=== PATIENT | female | born 1965 | race Caucasian/White ===

== ENCOUNTER 2017-01-15 16:48 | Observation (INO) ==
[2017-01-15] MEDS ORDERED: SODIUM CHLORIDE 0.9% INJ PRN (17:27)
[2017-01-15] MEDS ORDERED: PHENERGAN IV PRN (17:27)
[2017-01-15] MEDS ORDERED: NS 1,000 ML IV ONE (17:32)
[2017-01-15] MEDS ORDERED: TYLENOL PO PRN (17:33)
--- NOTE | 2017-01-15 18:58 | HISTORY AND PHYSICAL ---
PRIMARY CARE PHYSICIAN: Wilver Srinivasan MD. CHIEF COMPLAINT: Intractable nausea, vomiting, and diarrhea. HISTORY OF PRESENT ILLNESS: A 51-year-old, white female with a complicated past medical history presents for evaluation of above-mentioned symptoms. Pertinent history of present illness began approximately 6 weeks ago. At that time, patient was noted to have increasing stress associated with her 's acute illness. He was diagnosed with obstructive coronary artery disease and required stenting. Over the course of the last several weeks, patient's father also had been diagnosed with metastatic cancer. This was deemed to be not a candidate for surgery or chemotherapeutic intervention. The patient states she has been carrying this stress considerably. She has been taking her Prozac as prescribed. Within the last 5 days, patient has developed intractable nausea, vomiting, and diarrhea. She denies sick contacts to her knowledge. She has had a low-grade fever as well as decreased appetite and minimal p.o. intake. She has noted mild urinary hesitancy, but denies hematochezia, melena, dysuria, hematuria, pyuria, cough, congestion, and significant abdominal discomfort. The patient was seen in the office yesterday. The patient was treated symptomatically with Zofran therapy as needed. Because of her increasing stress, Prozac therapy was increased. Over the course of the night, patient's symptoms persisted. She presented today again in clinic. Laboratory evaluation returned acceptable. Patient will be admitted to the hospital for full evaluation and management of intractable nausea, vomiting, and diarrhea. PAST MEDICAL HISTORY: 1. Abnormal electrocardiogram with negative anterior T-waves. 2. History of anorexia in 1982, 1998, and 2005. 3. History of keratosis pilaris and occasional nevi. 4. Cervical spine pain status post surgical intervention in 2002 and 2007. 5. Depression. 6. Reflux disease. 7. Hypertension. 8. Hyperlipidemia. 9. Irritable bowel syndrome. 10. History of right lateral epicondyle status post surgical release in 2000. 11. Low back pain. 12. Menopause. 13. Menorrhagia status post endometrial ablation in 2004. CURRENT MEDICATIONS: 1. Acetaminophen 500 mg as needed. 2. Atorvastatin 10 mg at bedtime. 3. CoQ10, 100 mg daily. 4. Dicyclomine 20 mg, 3 times daily as needed. 5. Losartan 50 mg daily. 6. Prozac 60 mg daily. 7. Ranitidine as needed. 8. Trazodone 50 mg at bedtime as needed. 9. Zofran as needed. ALLERGIES: Patient states she is allergic to Celexa which causes dizziness and codeine which causes a rash. SOCIAL HISTORY: Patient denies tobacco, alcohol or illicit drug use. She works at [employer], and at [employer]. She exercises intermittently. FAMILY HISTORY: Patient's father passed at age 72 secondary to suicide. He had a history of alcoholism. Patient's mother is living at age 71. She has a history of osteoarthritis and ocular melanoma. REVIEW OF SYSTEMS: A 12 point review of systems was performed. Pertinent positives and negatives were noted in history of present illness. PHYSICAL EXAMINATION: VITAL SIGNS: Temperature 98.8 degrees, heart rate 80, respirations 18, blood pressure is 121/81. GENERAL: Well-nourished, well-developed, in no acute distress. HEENT: Normocephalic, atraumatic. Pupils equal, round, reactive to light. Extraocular muscles intact. Sclerae anicteric. [place] conjunctivae. Oral cavity and nasopharynx clear without exudate. NECK: Supple. No lymphadenopathy. No thyromegaly. No bruits auscultated. CARDIOVASCULAR: Regular rate and rhythm. No significant murmurs, rubs, or gallops. PULMONARY: Clear to auscultation bilaterally. ABDOMEN: Soft, nontender, nondistended. Positive bowel sounds. EXTREMITIES: Moves all extremities well. No significant clubbing, cyanosis, or edema. NEUROLOGIC EXAMINATION: Cranial nerves 2 through 12 grossly intact. Motor and sensory grossly intact. PSYCHOLOGIC EXAMINATION: Patient is depressed. LABORATORY DATA: Sodium 138, potassium 4.3, chloride 101, bicarbonate 25, BUN 10, creatinine 0.8, glucose 125, calcium 9.5, total bilirubin 0.5, total protein 7.7, albumin 4.8, alkaline phosphatase 105, AST 14, ALT 24. Urinalysis returned negative. White blood cell count 6.14, hemoglobin 14.0, hematocrit 41.2, platelet count 348,000. ASSESSMENT AND PLAN: A 51-year-old, white female with past medical history as noted presents for evaluation of intractable nausea, vomiting, and diarrhea. Patient's laboratory data is largely noncontributory. At this point, the differential diagnosis includes colitis/enteritis (bacterial or viral), irritable bowel syndrome, anorexia secondary to increasing stress, and additional intra- abdominal pathology. Patient will be admitted to the hospital for full evaluation and management of this condition. 1. Admit to General Medicine. 2. Intractable nausea and vomiting - We will start patient on antibiotic agents as needed. We will aggressively hydrate with a L of normal saline bolus followed by 75 mL an hour. We will check a flat and upright of the abdomen. Should patient's condition progress, we will consider further gastroenterology evaluation. We will treat patient's anxiety as below. 3. Diarrhea - Again, this could represent enteritis, but it also may be secondary to irritability. We will treat patient symptomatically for now. We will consider stool studies should her condition persist. We will start as needed Bentyl. We will follow this very closely. 4. Anxiety/depression - This is significant. As above, patient has had an eating disorder in the past. Patient's Prozac was increased to 60 mg yesterday. We will continue this. We will add as needed IV Ativan. Once again, this will be followed. 5. Mild dehydration - The patient has mild dehydration secondary to her intractable nausea, vomiting, and diarrhea. We will aggressively hydrate as above. 6. Hypertension - We will continue patient's home medications. 7. Hyperlipidemia - We will continue patient on home medications. 8. Fluid/electrolytes/nutrition - We will monitor electrolytes. Normal saline bolus followed by 75 mL an hour, clear liquid diet, prophylaxis. Patient will be placed on SCDs. cc: Wilver Srinivasan MD
[2017-01-15] MEDS: NS 1,000 ML IV SCH (19:28)
[2017-01-15] MEDS: ATIVAN IV PRN (19:29)
--- NOTE | 2017-01-15 20:16 | Diag Imaging Result Doc PS360 ---
EXAM: ABDOMEN FLAT/UPRIGHT HISTORY: intractable nausea, vomiting, and diarrhea TECHNIQUE: Flat and upright abdomen COMMENT: There is colonic gas. There is no evidence of gastric or small bowel dilatation. No evidence organomegaly or mass is present. There is scoliosis of the lumbar spine with convexity to the left. IMPRESSION: No evidence of obstruction. Nonspecific abdomen. Electronically signed by Casey Duran 01/15/2017 8:13 PM
[2017-01-16] MEDS: PRILOSEC PO SCH (06:09)
[2017-01-16] MEDS: ATIVAN IV PRN ×3 (06:10→23:25)
[2017-01-16] MEDS: NS 1,000 ML IV SCH ×3 (06:10→23:26)
[2017-01-16] MEDS ORDERED: ZOFRAN IV PRN (11:57)
[2017-01-16] MEDS: COZAAR PO SCH (12:05)
[2017-01-16] MEDS: LIPITOR PO SCH (12:05)
[2017-01-16] MEDS: KLONOPIN PO SCH (12:05)
[2017-01-16] MEDS: PROZAC PO SCH (12:05)
[2017-01-16] MEDS: BENTYL PO PRN ×2 (12:13→23:25)
--- NOTE | 2017-01-16 12:31 | PROGRESS NOTE ---
DATE: 01/16/2017 SUBJECTIVE: Patient was admitted yesterday with outpatient failure of intractable nausea, vomiting, and diarrhea. The patient was treated with aggressive IV hydration and antiemetic agents. This morning, patient did have dry heaves, but overall states her nausea has improved. She is attempting to eat a liquid diet. She has continued to have loose stools, although this is decreased slightly. She denies fevers, chills, nausea, vomiting, or abdominal discomfort at present time. She denies hematochezia or melena. OBJECTIVE: T-max 98.9 degrees, heart rate 62-74, respirations 14-17, blood pressure 114 to 130 over 55 to 66.General: Well nourished, well developed, no acute distress. Cardiovascular: Regular rate and rhythm. No significant murmurs, rubs, or gallops. Pulmonary: Clear to auscultation bilaterally. Abdomen: Soft, nontender, nondistended. Positive bowel sounds. Extremities: Moves all extremities well. No significant clubbing, cyanosis, or edema. Dermatologic: Evaluation reveals no evidence of rash. LABORATORY DATA: None. ASSESSMENT AND PLAN: 1. Intractable nausea and vomiting, outpatient failure - patient has achieved improvement, although not resolution. We will continue aggressive IV hydration. We will change patient from as-needed IV Phenergan to as-needed Zofran as she did have difficulty tolerating the Phenergan. We will advance patient's diet to a full liquid. We will continue to follow this closely. Should she continue to have significant symptoms, we will consider a Gastroenterology consultation. 2. Diarrhea - again, this is persistent, but slightly improved. We will add as-needed Bentyl as this may have an irritability component. Her examination remains completely benign. Laboratory data has been acceptable. We will continue supportive care. 3. Anxiety/depression - this is significant. The question has been raised whether this is exacerbating or the primary cause of her nausea, vomiting, and diarrhea. Her Prilosec was increased to 60 mg daily. We will continue this. We will add clonazepam 0.25 mg twice daily. We will continue as-needed Ativan. Once again, this will be followed closely. 4. Mild dehydration - patient has achieved improvement with IV fluids. We will continue this. 5. Hypertension - we will continue patient's home medications. 6. Hyperlipidemia - We will continue patient on her home medications. 7. Disposition - at this point, patient continues to require senior care care in the hospital setting. If she tolerates advancing diet and continues to have improvement in her condition, I suspect patient will be able to be discharged in the morning. cc: Wilver Srinivasan MD
[2017-01-17] MEDS: KLONOPIN PO SCH ×2 (01:45→09:05)
[2017-01-17] MEDS: ATIVAN IV PRN (06:14)
[2017-01-17] MEDS: BENTYL PO PRN (06:15)
[2017-01-17] MEDS: PRILOSEC PO SCH (06:15)
[2017-01-17 08:10] VITALS: BP 135/64
[2017-01-17] MEDS: LIPITOR PO SCH (09:06)
[2017-01-17] MEDS: PROZAC PO SCH (09:06)
[2017-01-17] MEDS: COZAAR PO SCH (09:07)
--- NOTE | 2017-01-17 20:22 | DISCHARGE SUMMARY ---
ADMISSION DATE: 01/15/2017 DISCHARGE DATE: 01/17/2017 ADMITTING DIAGNOSES: 1. Intractable nausea and vomiting. 2. Intractable diarrhea. DISCHARGE DIAGNOSES: 1. Intractable nausea and vomiting, improved. 2. Intractable diarrhea, improving. 3. Anxiety/depression, improving with medical intervention. 4. Mild dehydration, resolved. 5. Hypertension, present on arrival. 6. Hyperlipidemia, present on arrival. CONSULTATIONS: None. PROCEDURES: Abdominal x-ray was performed on 01/15/2017 which revealed no evidence of obstruction. Nonspecific bowel gas pattern. HISTORY AND PHYSICAL EXAMINATION: See admit note. PHYSICAL EXAMINATION PRIOR TO DISCHARGE: Vital Signs: Temperature 97.7 degrees, heart rate 65, respirations 20, blood pressure is 135/64. General: Well nourished, well developed, no acute distress. Cardiovascular: Regular rate and rhythm. No significant murmurs, rubs, or gallops. Pulmonary: Clear to auscultation bilaterally. Abdomen: Soft. Nontender, nondistended. Positive bowel sounds. Extremities: Moves all extremities well. No significant clubbing, cyanosis, or edema. Dermatologic: Evaluation reveals no evidence of rash. LABORATORY DATA: Prior to discharge: None. HOSPITAL COURSE: The patient was admitted as per history and physical examination. Hospital course per condition is as follows: 1. Intractable nausea and vomiting - Unfortunately, patient failed outpatient therapy. The patient was placed as an inpatient and started on aggressive hydration. Antiemetic agents were provided. With aggressive management as well as treatment for underlying anxiety/depression, symptoms improved. White blood cell count was within normal limits suggesting no evidence of significant bacterial infection. We will continue to follow this as an outpatient. 2. Diarrhea - The patient has achieved improvement, although not resolution. She currently is being treated with as-needed Bentyl therapy. For now, we will follow this. I have asked patient to use Imodium as needed. Should she have persistence of symptoms or develop abdominal discomfort/fevers, she is to let me know immediately, and we will consider stool studies at that time. 3. Anxiety/depression - The patient has longstanding disease. Recently, she has experienced an exacerbation. The patient's Prozac therapy was increased to 60 mg daily. We added clonazepam 0.25 mg twice daily. We will utilize this for now with plans to decrease usage over the next several days. We will follow this closely as well. 4. Mild dehydration - With aggressive hydration, she has achieved improvement. 5. Hypertension - The patient's blood pressure remained controlled throughout hospitalization. We will continue her current regimen. 6. Hyperlipidemia - Patient was maintained on her home medications. DISCHARGE CONDITION: Good. DISPOSITION: Discharged to home. MEDICATIONS: 1. Prozac 60 mg daily. 2. Clonazepam 0.25 mg twice daily. 3. Bentyl 20 mg 3 times daily as needed. 4. Atorvastatin 10 mg daily. 5. Losartan 50 mg daily. 6. Tylenol 650 mg every 4 hours as needed. 7. Omeprazole 20 mg daily for the next 2 weeks and then as needed thereafter. FOLLOWUP: The patient to follow with me in approximately 1-2 weeks. cc: Wilver Srinivasan MD
== END 2017-01-17 10:50 | disposition home or self-care (01) ==
LOC: INTOOBSV 16:48 → DIRADM 16:48 → 3N 17:04
PROVIDERS: ADMIT Internal Medicine; ATTEND Internal Medicine

== ENCOUNTER 2018-09-10 20:38 | Observation (INO) ==
[2018-09-10] MEDS ORDERED: TYLENOL PO PRN (21:06)
[2018-09-10] MEDS ORDERED: BENTYL PO PRN (21:11)
--- NOTE | 2018-09-10 21:55 | Diag Imaging Result Doc PS360 ---
EXAM: WRIST 2 VIEWS-LEFT - 09/10/2018 HISTORY: Intractable pain/ cellulitis after cat bite TECHNIQUE: AP and lateral left wrist two views COMPARISON: None. FINDINGS: There is soft tissue swelling. There is no opaque foreign body identified. There is no discrete subcutaneous gas collection identified. There is no fracture or dislocation identified. There are no erosive or destructive changes identified. IMPRESSION: Soft tissue swelling. No visible acute bony abnormality. Electronically signed by Sterling Potter 09/10/2018 9:52 PM
[2018-09-10 22:09] LABS: BASO# 0.04 X1000 (0.0-0.2); BASO% 0.5 % (0.0-0.8); EOS% 4.5 % (0.0-10.0); HEMATOCRIT 37.5 % (37.0-47.0); HEMOGLOBIN 12.3 g/dL (12.0-16.0); IMM GRAN# 0.02 X1000 (0.0-0.04); IMM GRAN% 0.2 % (0.0-0.5); LYMPH# 1.78 X1000 (1.2-3.4); LYMPH% 20.1 % (20.5-51.1); MCH 29.1 PG (27-31); MCHC 32.8 g/dL (33-37); MCV 88.7 FL (81-99); MONO# 0.76 X1000 (0.11-0.59); MONO% 8.6 % (1.7-9.3); NEUT# 5.87 X1000 (1.4-6.5); NEUT% 66.1 % (42.2-75.2); PLT 221 X1000 (130-400); RBC 4.23 XMIL (4.2-5.4); RDW 13.3 % (11.5-14.5); WBC 8.87 X1000 (4.8-10.8)
--- NOTE | 2018-09-10 22:22 | HISTORY AND PHYSICAL ---
CHIEF COMPLAINT: Intractable left wrist pain. HISTORY OF HISTORY OF PRESENT ILLNESS: A 53-year-old, white female with past medical history significant for cervical spine pain, reflux disease, hypertension, hyperlipidemia and irritable bowel syndrome presents for evaluation of above-mentioned symptoms. Current history of present illness began yesterday. The patient was baby-sitting her grandchildren and lifted her daughter's cat with her left arm. Upon doing so, patient suffered a cat bite and scratch to the left wrist. The patient experienced immediate pain. The patient washed the puncture wounds thoroughly. She immediately applied antibiotic ointment. Throughout the day, patient's pain and swelling increased considerably. She noted surrounding erythema. She denied systemic symptoms, including fevers, chills, nausea, and vomiting. The patient was seen in the office yesterday afternoon. At that time, Augmentin therapy was initiated. A limited amount of [place] was provided for pain relief. Since that time, unfortunately, patient continues to have considerable pain. The swelling has not subsided. Erythema remains stable. This evening, patient experienced fevers to nearly 100. She also has noted some fatigue and feeling of ill being. Patient contacted me. The patient was instructed to come by my house. At that time, the patient was evaluated. With persistence of symptoms despite antibiotic intervention, patient will be admitted to the hospital for full evaluation and management. PAST MEDICAL HISTORY: 1. Abnormal electrocardiogram with negative anterior T-waves. 2. Abnormal skin examination with keratosis pilaris and occasional nevi. 3. Cervicalgia, status post multiple surgical interventions. 4. Depression. 5. Reflux disease. 6. Hypertension. 7. Hyperlipidemia. 8. Irritable bowel syndrome. 9. Chronic low back pain, menopause. CURRENT MEDICATIONS: 1. Acetaminophen 500 mg every 6 hours as needed. 2. Atorvastatin 20 mg at bedtime. 3. Claritin 10 mg daily. 4. Co-Q10 100 mg daily. 5. Flexeril 10 mg 1/2 tablet 3 times daily as needed. 6. Dicyclomine 20 mg 3 times daily as needed. 7. Flonase 2 puffs each nostril daily as needed. 8. Ibuprofen 200 mg every 6 hours as needed. 9. Losartan 50 mg daily. 10. Prozac 40 mg daily. 11. Ranitidine 150 mg twice daily as needed. 12. Trazodone 50 mg at bedtime as needed. ALLERGIES: Patient states she is allergic to Celexa which caused dizziness and codeine which causes a rash. SOCIAL HISTORY: Patient denies tobacco, alcohol or illicit drug use. She works at [employer] at [employer]. She exercises intermittently. FAMILY HISTORY: Patient's father passed at age 72 secondary to complications of alcoholism. Patient's mother is 72 years old and has a history of osteoarthritis and ocular melanoma. REVIEW OF SYSTEMS: A 12 point review of systems was performed. Pertinent positives and negatives are noted in the history of present illness. PHYSICAL EXAMINATION: VITAL SIGNS: Temperature 98.7, heart rate 79, respirations 18, blood pressure 132/60. GENERAL: Well nourished, well developed, no acute distress. HEENT: Normocephalic, atraumatic. Pupils equal, round, reactive to light. Extraocular muscles intact. Sclerae anicteric. [place] conjunctivae. Oral and nasopharynx clear without exudate. NECK: Supple. No lymphadenopathy. No thyromegaly. No bruits auscultated. CARDIOVASCULAR: Regular rate and rhythm. No significant murmurs, rubs, or gallops. PULMONARY: Clear to auscultation bilaterally. ABDOMEN: Soft, nontender, nondistended. Positive bowel sounds. EXTREMITIES: Moves all extremities well. No significant clubbing, cyanosis, or edema. DERMATOLOGIC: Evaluation reveals several puncture wounds to the left wrist with significant erythema, swelling, and localized fever. Manipulation of the wrist demonstrates significant pain. NEUROLOGIC: Cranial nerves 2 through 12 grossly intact. Motor and sensory grossly intact. PSYCHOLOGIC EXAMINATION: Is appropriate. LABORATORY DATA: Pending at the time of admission. ASSESSMENT AND PLAN: A 53-year-old, white female with past medical history as noted, presents for evaluation of refractory cellulitis in setting of a cat bite. As described above, patient was started on Augmentin therapy yesterday. Unfortunately, patient has not demonstrated improvement. Today, she has developed low-grade fevers, as well as nausea/fatigue. Patient will be admitted to the hospital for full evaluation and management of this condition. 1. Admit to General Medicine. 2. Cellulitis secondary to cat bite-most likely organism is pasteurella. Patient has been treated with Augmentin therapy. We will transition to Zosyn. We will check blood cultures. We will check an x-ray of the wrist secondary to pain. If patient does not show a rapid improvement, we will add MRSA coverage. 3. Intractable left wrist pain-this likely is secondary to inflammation associated with the cellulitis. I cannot fully rule out underlying osteomyelitis or abscess. We will check an x- ray. If patient does not show rapid improvement, we will consider CT scan of the wrist. 4. Hypertension-we will continue patient on home medications. 5. Hyperlipidemia - We will continue patient on atorvastatin therapy. 6. Depression-we will continue patient on home dose of Prozac. 7. Fluid, electrolytes, nutrition. We will monitor electrolytes. Normal saline at KVO. Regular diet. 8. Prophylaxis. Patient will be placed on sequential compression devices. cc: Wilver Srinivasan MD
[2018-09-10 22:37] LABS: AGAP 9; ALB/GLOB RATIO 1.6; ALBUMIN 4.4 g/dL (3.5-5.0); ALKALINE PHOSPHATASE 98 U/L (32-104); BUN 14 mg/dL (8-22); CHLORIDE 106 mmol/L (98-107); COSMO 282; CREATININE 0.8 mg/dL (0.5-0.9); ESTIMATED GFR > 60; GLUCOSE 95 mg/dL (70-104); GOT 63 U/L (10-30); GPT 67 U/L (10-36); POTASSIUM 4.3 mmol/L (3.5-5.1); SODIUM 141 mmol/L (136-145); TCO2 26 mmol/L (25-35); TOTAL BILIRUBIN 0.44 mg/dL (0.20-1.00); TOTAL PROTEIN 7.1 g/dL (6.3-8.3)
[2018-09-10] MEDS: MORPHINE IV PRN (23:02)
[2018-09-10] MEDS: ZOSYN 3.375 GM in NS 50 ML IV SCH (23:02)
[2018-09-10] MEDS: NS 1,000 ML IV SCH (23:03)
[2018-09-11] MEDS: ZOSYN 3.375 GM in NS 50 ML IV SCH ×4 (04:00→20:47)
[2018-09-11] MEDS: ZOFRAN IV PRN (08:09)
[2018-09-11] MEDS: CLARITIN PO SCH (08:47)
[2018-09-11] MEDS: LIPITOR PO SCH (08:47)
[2018-09-11] MEDS: COENZYME Q10 PO SCH (08:47)
[2018-09-11] MEDS: PROZAC PO SCH (08:47)
[2018-09-11] MEDS: COZAAR PO SCH (09:00)
[2018-09-11] MEDS: MORPHINE IV PRN ×3 (11:02→19:34)
--- NOTE | 2018-09-11 11:13 | PROGRESS NOTE ---
DATE: 09/11/2018 SUBJECTIVE: Patient was admitted yesterday with an outpatient failure of treatment of cellulitis associated with a cat bite. The patient was empirically placed on Zosyn therapy. Laboratory data was drawn. Laboratory data returned significant for a normal white blood cell count 8.87, but with an elevated CRP of 50.39. Transaminases were noted to be modestly elevated. Since being in the hospital, patient states, overall, her condition has improved slightly. She notes decreasing pain in the left hand and wrist. She notes mild decrease in erythema and swelling. She denies fevers, chills, nausea, vomiting, shortness of breath, or chest discomfort. OBJECTIVE: Vitals: Temperature maximum 98.7 degrees, heart rate 68 to 80, respirations 10, blood pressure 111 to 132/50 to 60. General: Well nourished, well developed, no acute distress. Cardiovascular: Regular rate and rhythm. No significant murmurs, rubs, or gallops. Pulmonary: Clear to auscultation bilaterally. Abdomen: Soft, nontender, nondistended. Positive bowel sounds. Extremities: Moves all extremities well. No significant clubbing, cyanosis, or edema. Dermatologic: Evaluation reveals erythema, induration, and localized fever to the left wrist and hand. Several puncture wounds are noted. No evidence of fluctuance is identified. The patient does have extreme pain with flexion and extension of the wrist. LABORATORY DATA: White blood cell count 8.87, hemoglobin 12.3, hematocrit 37.5, platelet count is 221,000, sodium 141, potassium 4.3 chloride 106, bicarb 26, BUN 14, creatinine 0.8, glucose 95, calcium 9, total bilirubin 0.44, total protein 7.1, albumin 4.4, alkaline phosphatase 98, AST 63, ALT 67, sedimentation rate 7, CRP 50.39. ASSESSMENT AND PLAN: 1. Cellulitis secondary to cat bite: The most likely organism is pasteurella. Unfortunately, patient failed outpatient therapy with Augmentin therapy. She was transitioned to Zosyn yesterday. Clinically, patient has achieved some improvement. She does, however, continue to have considerable pain. We will continue her current medical regimen. We will follow patient's blood cultures. X-ray of the wrist demonstrated soft tissue swelling, but no evidence of osteomyelitis or abscess. 2. Intractable left wrist pain: This likely is secondary to inflammation. We will continue treatment of the underlying cellulitis. As described above, there has been no evidence of osteomyelitis identified per x-ray. We will continue to follow her clinical course closely. Should the pain continue, we will consider CT scan of the wrist. 3. Hypertension: Patient's blood pressure is slightly low today. We will continue to hold her blood pressure medications for systolic blood pressure less than 120. 4. Hyperlipidemia: We will continue patient on atorvastatin therapy. 5. Depression: We will continue home dose of Prozac therapy. 6. Transaminitis: Patient has a modest transaminitis. This likely is multifactorial. We will remain aware. 7. Disposition: At this point, patient continues to require nursing home care in a hospital setting. We will plan discharge home once appropriate. cc: Wilver Srinivasan MD
[2018-09-12] MEDS: NS 1,000 ML IV SCH (02:50)
[2018-09-12] MEDS: ZOSYN 3.375 GM in NS 50 ML IV SCH ×4 (02:50→21:32)
[2018-09-12] MEDS: LIPITOR PO SCH (10:28)
[2018-09-12] MEDS: CLARITIN PO SCH (10:28)
[2018-09-12] MEDS: COZAAR PO SCH (10:29)
[2018-09-12] MEDS: COENZYME Q10 PO SCH (10:29)
[2018-09-12] MEDS: PROZAC PO SCH (10:29)
[2018-09-12] MEDS: MORPHINE IV PRN ×2 (10:53→21:32)
--- NOTE | 2018-09-12 12:27 | Diag Imaging Result Doc PS360 ---
EXAM: CT EXT UPPER LEFT W/CON 09/12/2018 HISTORY: Left wrist cat bite/ rule out abscess and osteo TECHNIQUE: This exam was performed using automated exposure control, adjustment of mA or kV according to patient size, and/or use of iterative reconstruction technique. COMMENT: There is no evidence of fracture, periosteal reaction, erosion or dislocation. There is a small accessory ossicle adjacent to the first metacarpocarpal joint. There is a tiny fragment of bone on the dorsal aspect of the lateral side of the lunate of uncertain significance. There is soft tissue swelling and edema in the subcutaneous fat dorsally over the lower carpus. IMPRESSION: No evidence of discrete abscess or evidence for osteomyelitis. The possibility of cellulitis in the dorsal soft tissues cannot be excluded. Electronically signed by Casey Duran 09/12/2018 12:25 PM
[2018-09-12] MEDS: ZOFRAN IV PRN (12:58)
--- NOTE | 2018-09-12 21:32 | PROGRESS NOTE ---
DATE: 09/12/2018 SUBJECTIVE: The patient was originally seen this morning. At that time, patient noted improvement in her overall condition but continued to have considerable pain with palpation of the left wrist. Her flexion and extension remains very limited. Because of her clinical condition as well as an elevated CRP, a CT scan was performed. CT scan suggested no evidence of discrete abscess or evidence for osteomyelitis. The possibility of cellulitis in the dorsal soft-tissue cannot be excluded. She currently denies fevers, chills, nausea, vomiting, shortness of breath, or chest discomfort. OBJECTIVE: Vital signs: T-max 99.1 degrees, heart rate 65 to 77, respirations 16 to 19, blood pressure 132 to 153 over 50 to 79. General: Well nourished, well developed, no acute distress. Cardiovascular: Regular rate and rhythm. No significant murmurs, rubs, or gallops. Pulmonary: Clear to auscultation bilaterally. Abdomen: Soft, nontender, nondistended. Positive bowel sounds. Extremities: Moves all extremities well with the exception of the left wrist. Patient does have limited movement with flexion and extension. No significant clubbing, cyanosis, or edema. Dermatologic evaluation: Reveals a left wrist with several puncture wounds. Erythema remains present but is improving. She does continue to have localized fever. LABORATORY DATA: None. ASSESSMENT AND PLAN: 1. Cellulitis secondary to cat bite--unfortunately, patient continues to have slow improvement. CT scan suggested underlying cellulitis. For now, we will continue her current antibiotic regimen. I suspect within the next 24-48 hours we will be able to transition to oral antibiotics and discharge home. 2. Intractable left wrist pain--patient is currently treated with narcotic pain intervention. Symptoms have improved since hospitalization. 3. Hypertension--the patient's blood pressure has trended upwards while hospitalized. We will consider resuming home blood pressure medications tomorrow. 4. Hyperlipidemia--We will continue patient on atorvastatin therapy. 5. Depression--symptoms are controlled with Prozac therapy. 6. Transaminitis--we will repeat laboratory data in the a.m. 7. Disposition--at this point, patient continues to require intermediate care in a hospital setting. We will plan discharge home once appropriate. cc: Wilver Srinivasan MD
[2018-09-13] MEDS: MORPHINE IV PRN (04:44)
[2018-09-13] MEDS: NS 1,000 ML IV SCH (04:45)
[2018-09-13] MEDS: ZOSYN 3.375 GM in NS 50 ML IV SCH (04:45)
[2018-09-13 07:23] LABS: BASO# 0.05 X1000 (0.0-0.2); EOS# 0.52 X1000 (0.0-0.7); EOS% 10.3 % (0.0-10.0); HEMATOCRIT 38.5 % (37.0-47.0); HEMOGLOBIN 12.5 g/dL (12.0-16.0); LYMPH# 1.42 X1000 (1.2-3.4); LYMPH% 28.2 % (20.5-51.1); MCHC 32.5 g/dL (33-37); MCV 89.3 FL (81-99); MPV 9.6 FL (7.4-10.4); NEUT# 2.74 X1000 (1.4-6.5); NEUT% 54.5 % (42.2-75.2); PLT 225 X1000 (130-400); RBC 4.31 XMIL (4.2-5.4); RDW 13.1 % (11.5-14.5); WBC 5.03 X1000 (4.8-10.8)
[2018-09-13 07:42] LABS: AGAP 9; ALB/GLOB RATIO 1.4; ALBUMIN 4.3 g/dL (3.5-5.0); ALKALINE PHOSPHATASE 188 U/L (32-104); BUN 12 mg/dL (8-22); CALCIUM 8.9 mg/dL (8.8-10.2); CHLORIDE 105 mmol/L (98-107); COSMO 281; CREATININE 0.9 mg/dL (0.5-0.9); ESTIMATED GFR > 60; GLUCOSE 99 mg/dL (70-104); GOT 118 U/L (10-30); GPT 406 U/L (10-36); POTASSIUM 3.9 mmol/L (3.5-5.1); SODIUM 141 mmol/L (136-145); TCO2 27 mmol/L (25-35); TOTAL BILIRUBIN 0.48 mg/dL (0.20-1.00); TOTAL PROTEIN 7.4 g/dL (6.3-8.3)
[2018-09-13 07:45] VITALS: BP 121/64
--- NOTE | 2018-09-13 15:04 | DISCHARGE SUMMARY ---
ADMISSION DATE: 09/10/2018 DISCHARGE DATE: 09/13/2018 ADMISSION DIAGNOSIS: Intractable left wrist pain. DISCHARGE DIAGNOSES: 1. Cellulitis of the wrist secondary to cat bite. 2. Intractable wrist pain, improving, but not completely resolved. 3. Transaminitis, likely antibiotic associated. 4. Hypertension, present on arrival. 5. Hyperlipidemia, present on arrival. 6. Depression, present on arrival. CONSULTATIONS: None. PROCEDURES: CT scan of the left upper extremity revealed no evidence of discrete abscess or evidence for osteomyelitis. The possibility of cellulitis in the dorsal soft tissues cannot be excluded. HISTORY AND PHYSICAL EXAMINATION: See admit note. Vital signs: Physical examination prior to discharge, temperature 98.3 degrees, heart rate 66, respirations 18, and blood pressure 121/64. General: Well nourished, well developed in no acute distress. Cardiovascular: Regular rate and rhythm. No significant murmurs, rubs, or gallops. Pulmonary: Clear to auscultation bilaterally. Abdomen: Soft, nontender, and nondistended. Positive bowel sounds. Extremities: Moves all extremities well with exception of the left wrist. No significant clubbing, cyanosis, or edema. Dermatologic: Evaluation reveals erythema and induration to the left wrist. Localized fever is present. The patient does have improved flexion and extension of the wrist from yesterday, although with pain. LABORATORY DATA: Prior to discharge, white blood cell count 5.03, hemoglobin 12.5 hematocrit 38.5, and platelet counts 225,000. Sodium 141, potassium 3.9, chloride 105, bicarb 27, BUN 12, creatinine 0.9, glucose 99, calcium 8.9, total bilirubin 0.48, total protein 7.4, albumin 4.3, alkaline phosphatase 188, AST 811, ALT 406. HOSPITAL COURSE: Patient was admitted as per history and physical examination, and hospital course. Per condition is as follows. 1. Left wrist cellulitis secondary to cat bite with associated intractable left wrist pain-Upon admission, patient was noted to have intractable pain of the left wrist with severely limited movement. We attempted outpatient treatment with Augmentin therapy, although unsuccessfully. Upon admission, she had had low-grade fevers as well as nausea despite antibiotic intervention. Patient was immediately placed on Zosyn therapy. Throughout hospitalization, patient's condition slowly improved. At time of discharge, patient's pain was present, but improved considerably. She did have improvement, although not back to baseline of the flexion and extension of the wrist. The patient will be transitioned to doxycycline for the next week. We will continue to follow this closely. 2. Transaminitis-Upon admission, patient was noted to have a modest transaminitis. This increased to considerable at time of discharge. The patient denied any abdominal discomfort, nausea, or vomiting. I suspect this was medication associated. We will transition patient away from penicillin treatment. We will start patient on doxycycline therapy. I have asked patient to follow up in clinic on or Wednesday for repeat liver function evaluation. We will consider placing penicillin as an allergy depending on her response. 3. Hypertension. Patient's blood pressure was controlled while hospitalized. We will continue her home medications. 4. Hyperlipidemia-The patient is treated with atorvastatin therapy as an outpatient. We will hold atorvastatin at present time secondary to transaminitis. We will plan to resume once transaminases have normalized. 5. Depression-The patient was maintained on Prozac therapy while hospitalized. Symptoms remain controlled. DISCHARGE CONDITION: Good. DISPOSITION: Discharged to home. MEDICATIONS: 1. Coenzyme Q10 100 mg daily. 2. Prozac 40 mg daily. 3. Claritin 10 mg daily. 4. Doxycycline 100 mg twice daily for 1 week. 5. Losartan 50 mg daily. 6. Acetaminophen 650 mg every 4 hours as needed. 7. Trazodone 50 mg at bedtime as needed. 8. Atorvastatin has been held secondary to transaminitis. FOLLOWUP: The patient is to follow with me on or Wednesday for repeat CMP. cc: Wilver Srinivasan MD
== END 2018-09-13 09:30 | disposition home or self-care (01) ==
LOC: INTOOBSV 20:38 → DIRADM 20:38 → 3N 20:41
PROVIDERS: ADMIT Internal Medicine; ATTEND Internal Medicine
CPT/HCPCS: 73100; 73201; 80053; 85025; 85651; 86140; 87040; A9270; J2270; J2405; J2543; J7030; Q9967